=== PATIENT | female | born 1945 | race Caucasian/White ===

== ENCOUNTER 2016-10-18 16:35 | Emergency (ER) | payer OTHER, MEDICAID ==
[~2016-10-18] VITALS: Ht 152.4 cm; Wt 48.5 kg
[~2016-10-18 16:35] MED LIST: CEL20 PO; CELEBREX200 MG PO; NEU300 PO; PRI20 PO
[2016-10-18 21:49] VITALS: BP 92/59
== END 2016-10-18 21:49 | disposition home or self-care (01) ==
LOC: ED 16:35
DX: S86.812A Strain of other muscle(s) and tendon(s) at lower leg level, left leg, initial encounter (principal); S39.012A Strain of muscle, fascia and tendon of lower back, initial encounter; S50.12XA Contusion of left forearm, initial encounter; W17.89XA Other fall from one level to another, initial encounter; Z88.5 Allergy status to narcotic agent; Z88.8 Allergy status to other drugs, medicaments and biological substances; Y93.89 Activity, other specified; Y99.8 Other external cause status; Y92.89 Other specified places as the place of occurrence of the external cause

== ENCOUNTER 2017-10-12 17:44 | Emergency (ER) | payer OTHER, MEDICAID ==
[~2017-10-12] VITALS: Ht 152.4 cm; Wt 48.1 kg
[2017-10-12 18:03] VITALS: Ht 152.4 cm; Wt 48.1 kg
[2017-10-12 19:58] VITALS: BP 114/65
== END 2017-10-12 19:58 | disposition home or self-care (01) ==
LOC: ED 17:44
DX: S52.302A Unspecified fracture of shaft of left radius, initial encounter for closed fracture (principal); S52.612A Displaced fracture of left ulna styloid process, initial encounter for closed fracture; Z88.5 Allergy status to narcotic agent; Z88.6 Allergy status to analgesic agent; W01.0XXA Fall on same level from slipping, tripping and stumbling without subsequent striking against object, initial encounter; Y93.89 Activity, other specified; Y92.89 Other specified places as the place of occurrence of the external cause; Y99.8 Other external cause status
CPT/HCPCS: A4570; J3010; Q0162

== ENCOUNTER 2020-09-14 15:22 | Emergency (ER) | payer OTHER, MEDICAID ==
[~2020-09-14] VITALS: Ht 152.4 cm; Wt 46.7 kg
[2020-09-14 15:29] VITALS: Ht 152.4 cm; Wt 46.7 kg
[2020-09-14] MEDS ORDERED: TYLENOL325 M1 PO (17:19)
[2020-09-14 17:47] VITALS: BP 101/62
== END 2020-09-14 17:47 | disposition home or self-care (01) ==
LOC: ED 15:22
DX: S70.11XA Contusion of right thigh, initial encounter (principal); M25.562 Pain in left knee; M19.90 Unspecified osteoarthritis, unspecified site; Z88.6 Allergy status to analgesic agent; Z88.8 Allergy status to other drugs, medicaments and biological substances; W18.39XA Other fall on same level, initial encounter; Y93.89 Activity, other specified; Y92.89 Other specified places as the place of occurrence of the external cause; Y99.8 Other external cause status